=== PATIENT | male | born 1970 | race Hispanic/Latino ===

== ENCOUNTER 2017-04-27 07:51 | Emergency (ER) | payer SELFPAY ==
[2017-04-27 07:58] VITALS: BP 151/98; PULSE 95; RESP 18; TEMP 98.2; O2SAT 97
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
--- NOTE | 2017-04-27 08:54 | CT ---
PROCEDURE: CT HEAD WITHOUT CONTRAST. HISTORY: R/O Bleed COMPARISON: None available. TECHNIQUE: Axial computed tomography images were obtained through the head/brain without intravenous contrast. Radiation dose: Total exam DLP = 958.91 mGy-cm. This CT exam was performed using one or more of the following dose reduction techniques: Automated exposure control, adjustment of the mA and/or kV according to patient size, and/or use of iterative reconstruction technique. FINDINGS: HEMORRHAGE: No intracranial hemorrhage. BRAIN: Normal askew-white matter differentiation and density are appreciated throughout the cerebrum cerebellum and brainstem. There is no mass effect. There is no suspicious extra-axial fluid collection in the midline brain anatomy appears diffusely unremarkable. A mildly prominent cisterna magna is noted. VENTRICLES: Unremarkable. No hydrocephalus. CALVARIUM: No fracture of the calvarium is appreciated including the skullbase. There is no suspicious lytic or blastic change. PARANASAL SINUSES: Right maxillary and ethmoid sinusitis is appreciated incidentally. MASTOID AIR CELLS: Unremarkable as visualized. No inflammatory changes. OTHER FINDINGS: None. IMPRESSION: No acute intracranial findings. Incidental right maxillary and ethmoid sinus disease identified.
[2017-04-27] MEDS ORDERED: Lidocaine 1% Inj (20ml) INFIL ONE (09:07)
[2017-04-27] MEDS ORDERED: Lidocaine 2% Inj (20ml) ONE (09:15)
[2017-04-27] MEDS ORDERED: Lidocaine 1% Inj (20ml) ONE (09:16)
== END 2017-04-27 09:26 | disposition home or self-care (01) ==
LOC: C.ER 07:51
DX: S01.01XA Laceration without foreign body of scalp, initial encounter (principal); Y08.09XA Assault by strike by other specified type of sport equipment, initial encounter; Y93.89 Activity, other specified; Y92.89 Other specified places as the place of occurrence of the external cause